=== PATIENT | male | born 1980 | race Caucasian/White ===

== ENCOUNTER 2023-07-19 13:58 | Emergency (ER) | payer OTHER ==
[~2023-07-19] VITALS: Ht 182.9 cm; Wt 90.7 kg
[2023-07-19 14:07] VITALS: BP 125/83
[2023-07-19] MEDS ORDERED: PSEU120ER PO (16:40)
== END 2023-07-19 16:48 | disposition home or self-care (01) ==
LOC: ER 13:58
DX: S06.9X1A Unspecified intracranial injury with loss of consciousness of 30 minutes or less, initial encounter (principal); S02.2XXA Fracture of nasal bones, initial encounter for closed fracture; Z23 Encounter for immunization; W22.8XXA Striking against or struck by other objects, initial encounter
CPT/HCPCS: 12011; 21315; 70450; 70486; 90471; 90702; 90715; 99284-25; A9270